=== PATIENT | female | born 1980 | race Caucasian/White ===

== ENCOUNTER → 2016-05-12 | Outpatient (CLI) | payer BC ==
[~2016-05-12] MED LIST: LEVOIUD PV; MULT-506 PO
== END | disposition home or self-care (01) ==
LOC: C.PAPS 12:36
PROVIDERS: ATTEND Obstetrics & Gynecology
DX: Z01.411 Encounter for gynecological examination (general) (routine) with abnormal findings (principal); R87.610 Atypical squamous cells of undetermined significance on cytologic smear of cervix (ASC-US)

== ENCOUNTER → 2017-05-14 | Outpatient (CLI) | payer BC | END | disposition home or self-care (01) | LOC: C.PAPS 11:55 | PROVIDERS: ATTEND Obstetrics & Gynecology | DX: Z01.419 Encounter for gynecological examination (general) (routine) without abnormal findings (principal); R87.610 Atypical squamous cells of undetermined significance on cytologic smear of cervix (ASC-US) ==

== ENCOUNTER → 2017-06-29 | Day surgery (SDC) | payer BC ==
[2017-06-22 09:01] VITALS: Ht 160 cm; Wt 84.1 kg
[~2017-06-29] VITALS: Ht 160 cm; Wt 84.1 kg
[~2017-06-29] MED LIST changes: +ACETIC ACID 4% (WHITE VINEGAR) 30ML ONE; +ATROPINE SULFATE 0.1 MG/ML 5ML SYR IV PRN; +CHECK SCOPOLAMINE PATCH PLACEMENT SCH; +DEXAMETHASONE SOD INJ 4 MG/ML VIAL ONE; +EpHEDrine SULFATE INJ 50 MG/ML AMP IV PRN; +FENTANYL CITRATE INJ 50 MCG/1 ML 2 ML VIAL IV PRN; +FENTANYL CITRATE INJ 50 MCG/1 ML 2 ML VIAL ONE; +FERRIC SUBSULFATE 8 GM VIAL ONE; +IBUPROFEN 600 MG TAB PO PRN; +IODINE SOLN STRONG 14 ML ONE; +KETOROLAC TROMETHAMINE 30 MG/ML VIAL IV. PRN; +KETOROLAC TROMETHAMINE 30 MG/ML VIAL ONE; +LACTATED RINGER'S 1000ML 1,000 ML IV SCH; -LEVOIUD PV; +LIDO 2%/EPINEPHRINE 1:100000 20 ML VIAL ONE; +LIDOCAINE HCL 2% 2 ML VIAL (20MG/ML) ONE; +LORA-741 PO; +MIDAZOLAM HCL 1 MG/ML 2ML VIAL ONE; -MULT-506 PO; +ONDANSETRON INJ 2 MG/ML 2 ML VIAL IV PRN; +ONDANSETRON INJ 2 MG/ML 2 ML VIAL ONE; +OXYCODONE/ACETAMINOPHEN 5-325 TAB PO PRN; +PROPOFOL IV EMULSION 10 MG/ML 20 ML VIAL ONE; +SCOPOLAMINE 1.5 MG TDSY TD ONE; +SCOPOLAMINE 1.5 MG TDSY TD SCH; +SODIUM CHLORIDE 0.9% 1000ML 1,000 ML IV SCH; +VALA500T60 PO
--- NOTE | 2017-06-29 08:42 | History & Physical Bridge - [place] ---
H&P Re-Evaluation Bridge Note: I have examined the patient, reviewed the History & Physical and in the interval since the performance of the History & Physical I have noted the following changes of clinical significance: No changes noted
--- NOTE | 2017-06-29 10:06 | [facility] Post Operative Brief Note ---
Immediate Operative Summary Operative Date June 29, 2017. 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 Loop Electrosurgical Excision Procedure 2. ECC above LEEP Surgeon Dr. Knowles Retail Advertising Executive Surgeon(s) None Estimated Blood Loss None Findings See Below transformation zone seen Fluids (cc crystalloids) 300 Specimens A.) Endocervix B.) Ectocervix C.) ECC Above LEEP Drains None Anesthesia Type General Complication(s) none Disposition Disposition: Recovery Room / PACU
--- NOTE | 2017-06-29 10:08 | Discharge Instructions ---
Discharge Instructions Date of Service June 29, 2017. Admission Reason for Admission: Ascus Of Cervix With Negative High Risk Hpv Discharge Discharge Diagnosis / Problem: after surgery Discharge Goals Goal(s): Routine recovery after surgery Activity Recommendations Activity Limitations: as noted below . Instructions / Follow-Up Instructions / Follow-Up ACTIVITY RECOMMENDATIONS: * Avoid tampons, douching, hot tubs, pools, and intercourse until bleeding has stopped and seen back in the office. * May shower as usual. * No strenuous activity for 24-48 hours. After 24-48 hours, you may do anything you feel like doing (driving and sports are okay). SPECIAL CARE INSTRUCTIONS: Special Diet: * Mild nausea may occur in the immediate post-operative period. * Take clear liquids such as tea, cola or bouillon until all nausea has subsided; you may then resume your normal diet. Special Care: * Light bleeding and vaginal spotting can last from a few days to 3-4 weeks. Call your doctor if bleeding becomes heavier than the heaviest part of your period. * Check your temperature twice a day for one week. If it goes above 100.4 degrees Fahrenheit (38.0 Celsius), notify your doctor. * Call your doctor's office for an appointment for 2 weeks after your surgery. FOLLOW-UP VISIT: Call your doctor's office for an appointment for 2 weeks after your surgery. Your appointment is on 07/10/17 at 1145am. Current Hospital Diet Patient's current hospital diet: Discharge Diet Recommended Diet: Regular Diet Procedures Procedures Performed: 1. Loop Electrosurgical Excision Procedure 2. ECC above LEEP Pending Studies Studies pending at discharge: yes List of pending studies: pathology Medical Emergencies . Who to Call and When: Medical Emergencies: If at any time you feel your situation is an emergency, please call 911 immediately. . Non-Emergent Contact Non-Emergency issues call your: Internal Audit Senior Manager . . "Provider Documentation" section prepared by Ruby Knowles. .
--- NOTE | 2017-06-29 10:42 | OPERATIVE REPORT ---
DATE OF OPERATION: 06/29/2017 PREOPERATIVE DIAGNOSES: 1. Atypical squamous cells of undetermined significance with negative high-risk human papillomavirus. 2. Persistent mild dysplasia. POSTOPERATIVE DIAGNOSES: 1. Atypical squamous cells of undetermined significance with negative high-risk human papillomavirus. 2. Persistent mild dysplasia. PROCEDURE: LEEP conization of the cervix. SURGEON: Dr. Ruby Knowles. OPERATIONS BOARDMAN: None. ANESTHESIA: General. IV FLUIDS: 200 mL. ESTIMATED BLOOD LOSS: Zero. INDICATIONS: A 36-year-old who has completed her childbearing with persistent mild dysplasia over at least 2 years, who desired treatment with a LEEP procedure to try to correct the abnormal transformation zone as well as to determine if there is anything worse. She desired this under general anesthesia. The findings, transformation zone seen. DESCRIPTION OF PROCEDURE: Patient was taken to the operating room and identified. After adequate general anesthesia was obtained, she was placed in dorsal lithotomy position and draped in the usual fashion. A coated speculum was placed in the vagina that was attached to suction tubing. The cervix was visualized. It was cleansed with acetic acid. A colposcopy took place to outline the limitations of the transformation zone on the ectocervix. The Lugol solution was applied to also delineate the margins. The LEEP procedure then took place first by excising the ectocervix. An endocervical specimen was then also taken. An ECC above the LEEP was also taken. These specimens were all sent. The LEEP bed was cauterized with ball cautery and coagulation. The Monsel solution was applied. There were no active bleeding sites. The LEEP procedure did not take place until 2% lidocaine with epinephrine of approximately 10 mL had been injected circumferentially. At this point the procedure was terminated. All the instruments were removed. The patient was returned to supine position, awoken from the anesthesia, and transferred to the recovery room in stable condition. All sponge, lap, needle counts were correct x2. I attest to the content of the Intraoperative Record and any orders documented therein. Any exception s are noted below.
--- NOTE | 2017-06-29 10:48 | Anesthesia Progress Nt - [facility] ---
Anesthesia Post Op Note Date & Time June 29, 2017 at 10:47 Vital Signs Pain Intensity: 0 Vital Signs Past 12 Hours Date Time Temp Pulse Resp B/P (MAP) Pulse Ox O2 Delivery O2 Flow Rate FiO2 06/29/17 10:12 36.5 84 12 94/56 97 Mask 8 06/29/17 08:17 36.7 95 16 139/83 (101) 98 Room Air Notes Mental Status: alert / awake / arousable, participated in evaluation Pt Amnestic to Procedure: Yes Nausea / Vomiting: adequately controlled Pain: adequately controlled Airway Patency, RR, SpO2: stable & adequate BP & HR: stable & adequate Hydration State: stable & adequate Anesthetic Complications: no major complications apparent
[2017-06-29 11:30] VITALS: BP 101/67; PULSE 58; O2SAT 98
== END | disposition home or self-care (01) ==
LOC: X.SURG 07:54
PROVIDERS: ATTEND Obstetrics & Gynecology
DX: N87.0 Mild cervical dysplasia (principal); Z88.1 Allergy status to other antibiotic agents; Z87.440 Personal history of urinary (tract) infections; Z82.49 Family history of ischemic heart disease and other diseases of the circulatory system; Z83.42 Family history of familial hypercholesterolemia; Z84.1 Family history of disorders of kidney and ureter; Z82.62 Family history of osteoporosis